=== PATIENT | male | born 2005 | race Caucasian/White ===

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

== ENCOUNTER 2025-05-06 21:52 | Emergency (ER) | payer MEDICAID, SELFPAY ==
[2025-05-06 21:55] VITALS: BP 139/88; PULSE 82; RESP 16; TEMP 36.6; O2SAT 97
--- NOTE | 2025-05-06 22:01 | ED.GENADUL_ITS ---
Discharge Plan Disposition Patient Disposition: Home Condition: Good Discharge Details Clinical Impression: Pharyngitis Primary Care Provider: Genna,Local ED Provider: Jackson Machado Discharge Instructions Instructions: Sore Throat, Adult ED Additional Instructions: Your symptoms of cough, runny nose, sore throat is more consistent with viral infection than anything else. I see no ulcerations or evidence of thrush on exam and you report a negative strep earlier. I would recommend plenty of fluids, alternating ibuprofen with acetaminophen for pain, salt water gargles and Cepacol lozenges for throat discomfort. Follow-up with primary care next week if you are not improving over the next 3 to 5 days. Return to ED for any difficulty breathing, inability to swallow, other concerns. HPI General Mode of arrival: ambulatory . Date/Time Provider Initiated Documentation: 05/06/25 22:01 . Limitations to Documentation: no limitations . Information obtained by: patient and RN notes reviewed . HPI Narrative: Patient presents to ED with complaint of sore throat. Patient reports that his girlfriend was diagnosed with thrush. He woke up this morning with a sore throat and a white covering on his tongue. He is also reporting runny nose and cough. Denies headache, earache, fever. Was at [facility] where a rapid strep was negative. He asked them about testing for thrush which they stated they could not do. He then presented here for testing. General Stated Complaint: ThroatFB YULIET: 4 Exam Narrative Exam Narrative: Const: WDWN male in NAD. VS per triage. HEENT: NC/AT. Normal facial exam. Normal TMs B. OP without ulceration, exudate or edema. Nothing to suggest thrush on exam. Erythema of the tonsils and posterior OP. Neck: Supple. Trachea midline. Lungs: Normal respiratory effort. Lungs are clear. Cor: RRR without murmur. Good radial pulses. Neuro: A+O x 3. Normal speech, mentation, gait. Cranial nerves II - XII grossly intact. No gross motor or sensory deficit. Course Vital Signs Vital signs: Vital Signs Temperature 97.8 F 05/06/25 21:55 Pulse 82 05/06/25 21:55 Respiratory Rate 16 05/06/25 21:55 Blood Pressure 139/88 05/06/25 21:55 Pulse Oximetry 97 05/06/25 21:55 Temperature 97.8 F 05/06/25 21:55 Temperature Source Oral 05/06/25 21:55 Pulse 82 05/06/25 21:55 Respiratory Rate 16 05/06/25 21:55 Respiratory Effort Normal 05/06/25 21:59 Respiratory Pattern Normal 05/06/25 21:59 Blood Pressure 139/88 05/06/25 21:55 Blood Pressure Position Sitting 05/06/25 21:55 Pulse Oximetry 97 05/06/25 21:55 Oxygen Delivery Method Room Air 05/06/25 21:55 Oxygen Flow Rate 0 05/06/25 21:55 Medical Decision Making Patient presenting to ED with sore throat, cough, runny nose with concern for thrush. Rapid strep negative earlier this evening. Exam suggestive of pharyngitis without edema, exudate, ulceration. Nothing to even swab to potentially do a MARIA DE JESUS prep, which is not available at this facility anyway. Clinically symptoms more consistent with pharyngitis likely viral. Discussed with the patient. Recommend plenty of fluids, alternating ibuprofen with acetaminophen and using salt water gargles and Cepacol lozenges for throat discomfort. Follow-up with primary care in the week if he is not improving. Return precautions provided. No indication for antibiotics or antifungals. PFSH All Active Problems (Updated 05/06/25 @ 22:15 by Jackson Machado MD) Pharyngitis (Acute) Social History Smoking/Tobacco Use Status: Former Tobacco Use Smoking risk assessment performed?: Yes Alcohol Intake: former Drug use: Never Substance use type: does not use Housing: apartment
[2025-05-06 22:24] VITALS: RESP 18
== END 2025-05-06 22:23 | disposition home or self-care (01) ==
LOC: ER 22:19
PROVIDERS: Emergency Provider Emergency Medicine
DX: J02.9 Acute pharyngitis, unspecified (principal)
CPT/HCPCS: 99282 ×2